=== PATIENT | male | born 1985 | race Caucasian/White ===

== ENCOUNTER 2016-10-16 19:34 | Emergency (ER) | payer BC ==
[2016-10-16 19:45] VITALS: BP 146/93
--- NOTE | 2016-10-22 20:41 | ER ---
Date of Service: 10/16/2016 SUBJECTIVE: Iron presents to the emergency room with complaints of laceration to the dorsal aspect of his right thumb. The patient states that he was using a winch to position his ice fishing house when he sustained the injury. The patient states that his tetanus is up to date. He states that he is not experiencing any numbness or tingling in the distal portion of the extremity. PAST MEDICAL HISTORY: None. MEDICATIONS: None. ALLERGIES: NKDA. REVIEW OF SYSTEMS: Again, denies any numbness or tingling in the distal portion of the extremity. No difficulties with movement of the extremity. PHYSICAL EXAMINATION: General: This is a 30-year-old male patient, in no acute distress. Vital Signs: Blood pressure is 146/93, pulse rate is 86, temperature is 36.3, respiratory rate 16, O2 saturations 98%. Skin: Warm, pink, and dry. Musculoskeletal: The patient has approximately 1.5 cm laceration to the dorsal aspect of his right thumb over the interphalangeal joint. No obvious gross bony deformity noted. No obvious trauma noted to the underlying structures. His range of motion to the extremity is within normal limits. The neurovascular circulation, sensation, and motor function all within normal limits in distal portion extremity. RADIOGRAPHIC DATA: I did order a radiograph of the digit but the patient subsequently refused the imaging. He was informed that he could have some underlying bony injury that would not be evident without radiographs. Physical therapist is aware of the ramifications of not ensuring the absence of a fracture. EMERGENCY ROOM COURSE: The laceration was irrigated with Shur-Clens and normal saline. The patient's hand was prepped and draped in the usual sterile fashion. A total of 4 mL of 1% lidocaine was used to anesthetize the laceration. A total of 2 interrupted 4-0 nylon sutures was used to close the laceration. Excellent hemostasis and wound approximation was achieved. The patient tolerated this well. He remained stable in my care in the emergency room. ASSESSMENT: A 1.5 cm laceration to the dorsal aspect of the right thumb. PLAN: The patient will be discharged. Keep dry for 24 hours. He is going out ice fishing. He was urged not to get [place] water or water from his bay bucket in the laceration as this would that greatly increase his chances of a developing a potentially serious infection in the laceration. He stated that he was offered nitrile gloves here from the emergency room to use while he was fishing but he states that he had some that he could use at his ice fishing house. All questions were answered. Keep dry for at least 24 hours. Keep sutures in for 12 days and they should be removed at approximately 12 days in the clinic. Return if there is any redness, swelling, or discharge from the area. All questions were answered. MWK: 10/22/2016 14:48:14 MODL: 10/22/2016 20:35:06 /[id number]
== END 2016-10-16 20:22 ==
LOC: VM.ED 19:34
DX: S61.011A Laceration without foreign body of right thumb without damage to nail, initial encounter (principal); W26.8XXA Contact with other sharp object(s), not elsewhere classified, initial encounter; Y92.099 Unspecified place in other non-institutional residence as the place of occurrence of the external cause
CPT/HCPCS: 12001; 99282